=== PATIENT | female | born 1985 | race Caucasian/White ===

== ENCOUNTER 2019-06-09 13:00 | Emergency (ER) | payer MEDICAID ==
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
[2019-06-09 13:38] LABS: MEAN CORPUSCULAR HEMOGLOBIN 31.6 pg (27.0-34.8); MEAN PLATELET VOLUME 8.8 fL (7.4-10.4); PLATELET COUNT 319 x10^3/uL (130-400); RED BLOOD COUNT 4.16 x10^6/uL (3.82-5.3); RED CELL DISTRIBUTION WIDTH 14.4 % (9.6-15.2)
[2019-06-09 13:50] LABS: ALBUMIN 4.2 g/dL (3.4-5.0); ANION GAP 8 mmol/L (5-15); CALCIUM 8.7 mg/dL (8.5-10.1); CHLORIDE 106 mmol/L (98-107)
[2019-06-09 13:51] LABS: CREATININE 1.01 mg/dL (0.55-1.02)
[2019-06-09 13:55] LABS: SALICYLATE LEVEL < 1.7 mg/dL (2.8-20.0)
[2019-06-09 14:13] LABS: HCG UR SG 1.032 (1.003-1.030)
[2019-06-09 14:29] LABS: MD YES
[2019-06-09 14:32] LABS: BAND#(MANUAL) 0.18 x10^3/uL; BANDS%(MANUAL) 1 % (0-7); LYMPH#(MANUAL) 3.11 x10^3/uL (1-3.4); LYMPHS% (MANUAL) 17 % (22-44); MONOS#(MANUAL) 1.46 x10^3/uL (0.3-2.7); MONOS% (MANUAL) 8 % (2-9); SEG#(MANUAL) 13.54 x10^3/uL (1.8-6.8); SEGS% (MANUAL) 74 % (42-75)
[2019-06-09 14:33] LABS: <PLATELET ESTIMATE> ADEQUATE; <PLT MORPHOLOGY> NORMAL PLT MORPH; <RBC MORPHOLOGY> NORMAL
--- NOTE | 2019-06-09 14:33 | NUR ---
PT TRIED TO LEAVE TWICE AND WAS ESCORTED BACK TO ROOM BY SITTER. PT THEN BECAME FRUSTERATED WANTING A CIGARETTER AND WAS KICKING THE GARAGE DOORS. PT ALSO TOLD AUGUSTIN RAM, THAT SHE WANTED TO "KILL HER AND HER ENTIRE FAMILY".
[2019-06-09] MEDS ORDERED: HALOPERIDOL 5 MG/ML ONE (14:59)
[2019-06-09] MEDS ORDERED: NICOTINE 14MG/24 HR PATCH.TD24 ONE (14:59)
[2019-06-09] MEDS ORDERED: DIPHENHYDRAMINE 50 MG/ML, 1ML ONE (14:59)
[2019-06-09] MEDS ORDERED: LORazepam 2 MG/ML, 1ML IM PRN (15:00)
[2019-06-09] MEDS ORDERED: NICOTINE 14MG/24 HR PATCH.TD24 TD ONE (15:00)
[2019-06-09] MEDS ORDERED: LORazepam 2 MG/ML, 1ML ONE (15:00)
[2019-06-09] MEDS ORDERED: HALOPERIDOL 5 MG TABLET PO PRN (15:00)
[2019-06-09] MEDS ORDERED: LORazepam 1MG TABLET PO PRN (15:00)
[2019-06-09] MEDS ORDERED: PLEASE ENTER WEIGHT MC SCH (15:00)
[2019-06-09] MEDS ORDERED: DIPHENHYDRAMINE 50 MG/ML, 1ML IM PRN (15:00)
[2019-06-09] MEDS ORDERED: HALOPERIDOL 5 MG/ML IM PRN (15:00)
[2019-06-09] MEDS ORDERED: DIPHENHYDRAMINE 25 MG CAPSULE PO PRN (15:00)
--- NOTE | 2019-06-09 15:18 | NUR ---
PT MEDICATED PER PROVIDER ORDERS. PT NOW RESTING IN [facility]. INSIDE A SUICIDE SECURED ROOM WITH 1-1 SITTER OUT FRONT. PT WAS ALSO GIVEN A NICOTINE PATCH ON RIGHT ARM. NO OTHER NEEDS AT THIS TIME
[2019-06-09 15:29] LABS: AMPHETAMINE SCREEN, URINE Positive (Negative); BARBITURATE SCREEN, URINE Negative (Negative); BENZODIAZEPINE SCREEN, URINE Negative (Negative); CANNABINOID SCREEN, URINE Negative (Negative); COCAINE SCREEN, URINE Negative (Negative); METHADONE SCREEN, URINE Negative (Negative); OPIATE SCREEN, URINE Negative (Negative)
--- NOTE | 2019-06-09 15:51 | NUR ---
PT RESTING IN GURNEY. EYES CLOSED. EQUAL RISE AND FALL OF CHEST DURING RESPIRATIONS. PT IS IN SUICIDE SECURED ROOM WITH A 1-1 SITTER OUTSIDE OF ROOM.
--- NOTE | 2019-06-09 17:22 | NUR ---
THROUGHPUT RN: 3E [facility] NOTIFIED OF PT.
--- NOTE | 2019-06-09 17:47 | NUR ---
THROUGHPUT RN: 3E [facility] DENIED PT SECONDARY TO INSURANCE. [facility], AND [facility].
[2019-06-09 19:32] VITALS: BP 94/62
--- NOTE | 2019-06-09 19:32 | NUR ---
PT TO BE TRANSFERED TO [place]. REPORT GIVEN TO ZULEIMA MEDINA.
--- NOTE | 2019-06-09 19:43 | NUR ---
TRANSPORT SET UP THROUGH [facility] AND [facility]
== END 2019-06-09 20:15 ==
LOC: ED 20:09
DX: F15.151 Other stimulant abuse with stimulant-induced psychotic disorder with hallucinations (principal); F17.200 Nicotine dependence, unspecified, uncomplicated; F32.9 Major depressive disorder, single episode, unspecified
CPT/HCPCS: 36415; 80048; 80307; 81025; 82040; 85025; 96372; 99285; J1200; J1630; J2060

== ENCOUNTER 2020-04-26 00:12 | Emergency (ER) | payer MEDICAID ==
[~2020-04-26] VITALS: Ht 170.2 cm; Wt 62.0 kg
[2020-04-26] MEDS ORDERED: OLANZAPINE 5 MG TABLET ONE (00:29)
[2020-04-26] MEDS ORDERED: OLANZAPINE 5 MG TABLET PO ONE (00:30)
--- NOTE | 2020-04-26 00:31 | NUR ---
pt mariajose silvestre from [facility] for medical clearance. pt anox3, oriented to self, time, and location. doesnt know situation. pt nad, calm and cooperative, flight of ideas and is extremely focused on acutane medication, stating "for 2020 i just want to get my acne under control." pt appears comfortable, ambulated to and from restroom for ua with a smooth and steady gait. pt is on a L2K from [place] however she denies si/hi to this rn. abigail. amy erp at bs for eval and poc.
[2020-04-26 00:33] LABS: BASOPHILS % (AUTO) 1 % (0-1); EOSINOPHILS % (AUTO) 1 % (1-7); LYMPHOCYTES % (AUTO) 22 % (22-44); MEAN CORPUSCULAR HEMOGLOBIN 31.6 pg (27.0-34.8); MEAN CORPUSCULAR HGB CONC 34.4 g/dL (32.4-35.8); MEAN PLATELET VOLUME 8.6 fL (7.4-10.4); MONOCYTES % (AUTO) 4 % (2-9); NEUTROPHILS % (AUTO) 73 % (42-75); PLATELET COUNT 321 x10^3/uL (130-400); RED BLOOD COUNT 4.23 x10^6/uL (3.82-5.3); RED CELL DISTRIBUTION WIDTH 13.4 % (9.6-15.2)
[2020-04-26 00:42] LABS: MD NO
[2020-04-26 00:44] LABS: ALANINE AMINOTRANSFERASE 24 U/L (12-78); ALBUMIN 3.9 g/dL (3.4-5.0); ANION GAP 4 mmol/L (5-15); CALCIUM 8.5 mg/dL (8.5-10.1); CHLORIDE 107 mmol/L (98-107); SALICYLATE LEVEL 2.5 mg/dL (2.8-20.0)
[2020-04-26 00:55] LABS: ALKALINE PHOSPHATASE 71 U/L (45-117); BILIRUBIN,TOTAL 0.5 mg/dL (0.2-1.0); TOTAL PROTEIN 7.6 g/dL (6.4-8.2)
[2020-04-26 01:38] LABS: AMPHETAMINE SCREEN, URINE Negative (Negative); BARBITURATE SCREEN, URINE Negative (Negative); BENZODIAZEPINE SCREEN, URINE Negative (Negative); CANNABINOID SCREEN, URINE Positive (Negative); COCAINE SCREEN, URINE Negative (Negative); METHADONE SCREEN, URINE Negative (Negative); OPIATE SCREEN, URINE Negative (Negative)
--- NOTE | 2020-04-26 01:55 | NUR ---
PT UP IN ROOM, MOVING AROUND WITH A SMOOTH AND STEADY GAIT, NAD, APPEARS COMFORTABLE, DENIES ADDITIONAL NEEDS, WCTM. WAITING FOR URINE TOX THEN DC TO [facility]
--- NOTE | 2020-04-26 02:18 | NUR ---
Sharon laughlin in [facility] - 04/26/20 at [address] Cote.
--- NOTE | 2020-04-26 02:53 | NUR ---
pt resting on gurney, nad, eyes closed, even and unlabored resp. appears comortable, wctm. waiting for ua results
[2020-04-26 02:58] LABS: MICROSCOPIC INDICATED
--- NOTE | 2020-04-26 03:22 | NUR ---
pt resting on gurney, eyes closed, even and unlabored respirations, nad, no change in condition, wctm. bed in lowest, call light on lap, rails engaged.
--- NOTE | 2020-04-26 04:15 | NUR ---
pt resting on gurney, eyes closed, even and unlabored respirations, nad, no change in condition, wctm. bed in lowest, call light on lap, rails engaged.
--- NOTE | 2020-04-26 05:07 | NUR ---
pt resting on gurney, eyes closed, even and unlabored respirations, nad, no change in condition, wctm. bed in lowest, call light on lap, rails engaged. remsa @ 0600 to [place]
[2020-04-26 06:12] VITALS: BP 116/82
--- NOTE | 2020-04-26 06:25 | NUR ---
pt resting on gurney, eyes closed, even and unlabored respirations, nad, no change in condition, wctm. bed in lowest, call light on lap, rails engaged. konrad @ 0600 to nidhi report called to nidhi rodrigez
--- NOTE | 2020-04-26 06:41 | NUR ---
konrad to transport pt to [facility]. report provided. nad, no change in condition, no personal belongings left in room after dc
== END 2020-04-26 06:42 ==
LOC: ED 01:22
DX: F23 Brief psychotic disorder (principal); F17.200 Nicotine dependence, unspecified, uncomplicated
CPT/HCPCS: 36415; 80053; 80299; 80307; 80320; 80329; 81001; 84443; 84703; 85025; 87086; 99285; G0480

== ENCOUNTER 2020-10-22 21:41 | Emergency (ER) | payer MEDICAID ==
[~2020-10-22] VITALS: Ht 170.2 cm; Wt 58.4 kg
[2020-10-22 21:54] VITALS: BP 117/73
== END 2020-10-22 22:58 | disposition home or self-care (01) ==
LOC: ED 22:52
DX: R82.998 Other abnormal findings in urine (principal); Z20.822 Contact with and (suspected) exposure to COVID-19
CPT/HCPCS: 99283; U0003; U0005